=== PATIENT | male | born 1940 | race Native Hawaiian/Other Pacific Islander ===

== ENCOUNTER 2016-11-26 07:04 | Outpatient (CLI) | payer OTHER, MEDICARE ==
[~2016-11-26 07:04] MED LIST: ASPIRIN ADULT L81 MG OR; CEPH500C20 PO; FISH OIL ULT1000 MG OR; GLUCOPHAGE1000 MG PO; LEVAQUIN500 MG OR; LISI5TAB10 PO; MULTI OR; PRILOSEC20 MG OR; SILV1CRE EX; SIMV20TA2 PO; TRILIPIX135 MG OR; UNITH DIRECT50 MCG PO; VITAMIN D1000 UNIT OR
[2016-11-26 08:07] LABS: PLATELET COUNT 306 K/uL (142-355)
[2016-11-26 09:58] LABS: POTASSIUM 4.1 mmol/L (3.6-5.2)
== END 2016-11-26 08:04 | disposition home or self-care (01) ==
LOC: LABW 07:04
PROVIDERS: Internal Medicine
DX: R63.0 Anorexia (principal); E11.9 Type 2 diabetes mellitus without complications; E03.8 Other specified hypothyroidism; Z12.5 Encounter for screening for malignant neoplasm of prostate; R97.20 Elevated prostate specific antigen [PSA]
CPT/HCPCS: 36415; 80053; 80061; 81000; 82043; 82570; 83036; 84153; 84439; 84443; 85027

== ENCOUNTER 2017-01-24 06:59 | Outpatient (CLI) | payer OTHER, MEDICARE | END 2017-01-24 08:05 | disposition home or self-care (01) | LOC: LABW 06:59 | DX: R97.20 Elevated prostate specific antigen [PSA] (principal) | CPT/HCPCS: 36415; 84154 ==

== ENCOUNTER 2017-05-22 06:49 | Outpatient (CLI) | payer OTHER, MEDICARE ==
[2017-05-22 13:48] LABS: PLATELET COUNT 284 K/uL (142-355)
== END 2017-05-22 07:50 | disposition home or self-care (01) ==
LOC: LABW 06:49
PROVIDERS: Internal Medicine Cardiovascular Disease
DX: E78.4 Other hyperlipidemia (principal); I25.119 Atherosclerotic heart disease of native coronary artery with unspecified angina pectoris; I10 Essential (primary) hypertension; E11.9 Type 2 diabetes mellitus without complications; N39.0 Urinary tract infection, site not specified; R97.20 Elevated prostate specific antigen [PSA]
CPT/HCPCS: 36415; 80061; 80076; 81000; 83036; 84153; 84443; 85027

== ENCOUNTER 2017-06-26 10:38 | Inpatient (IN) | payer OTHER, MEDICARE ==
[~2017-06-26] VITALS: Ht 185.4 cm; Wt 108.1 kg
[2017-06-26] VITALS (31 sets, daily range): BP systolic 81–146; BP diastolic 42–86; TEMP 98–98.5; Ht 185.4 cm; Wt 108.1 kg
[2017-06-26] MEDS ORDERED: TRICOR145 M1 PO (11:05)
[2017-06-26 11:38] LABS: PLATELET COUNT 215 K/uL (142-355)
[2017-06-26 11:47] LABS: POTASSIUM 3.7 mmol/L (3.6-5.2); SODIUM 130 mmol/L (136-145)
--- NOTE | 2017-06-26 17:30 | NUR ---
77 YEAR OLD MALE ADMITTED TO ICU BED 131 3. PT ALERT ORIENTED TO ROOM, PLACED ON MONITOR. SR HR 65, B/P 124/86. PT RECIEVING NS AT 175 AND LEVOPHED DRIP AT 4 MCG FROM ER. BEGAN ADMISSION ASSESSEMENT. DENIES PAIN. ON PHONE WITH . PT VOIDED 200 ML SLIGHT BLOOD TINGED STATED THAT IT WAS MUCH BETTER HAD PROSTATE BIOPSY ON 06/24/17 IN [place]. PT ORIENTED TO ROOM. SERVED DINNER TRAY CLEAR LIQUIDS.
--- NOTE | 2017-06-26 19:00 | NUR ---
LEVOPHED DRIP TURNED TO 2 MCG. B/P 112/62 B/P STAYING UP, IV FLUIDS CONTINUE AT 175 WILL MONITOR . REPORT TO HOLLEY ARNOLD RESTING IN BED STATES FEELING BETTER. DAUGHTER VISITED. WILL DRAW SECOND SET CARDIAC ENZYMES
--- NOTE | 2017-06-26 19:45 | NUR ---
RECEIVED PATIENT SITTING UP IN BED TALKING TO HIS DAUGHTER. PATIENT IS A&OX4. NO ACUTE PAIN VOICED AT THIS TIME. SHIFT ASSESSMENT COMPLETED. PATIENT IS ON 02 AT 2L VIA NC WITH O2 SATS 94%. IV 20G TO THE RIGHT WRIST INFUSING NS AT 175/ML HR AND LEVOPHED AT 2MCG. B/P 146/71, HR-79. PATIENT REPORTS LAST BOWEL MOVEMENT 06/26/17. USING URINAL AT BEDSIDE TO VOID. BALL SHAGGER SOCKS ON. BED LOCKED IN LOW POSITION, SIDERAILS UP X2, CALL VANESSA WITHIN REACH.
--- NOTE | 2017-06-26 21:35 | NUR ---
RT HERE DOING EKG
[2017-06-27] VITALS (29 sets, daily range): BP systolic 84–129; BP diastolic 57–89; TEMP 97.8–102.7
--- NOTE | 2017-06-27 01:21 | NUR ---
ROUNDING ON PATIENT NOTED FACE FLUSHED AND WARM TO TOUCH. PATIENT HAVING CHILLS WELL. ORAL TEMP TAKEN 101.3 FEVER. NEW ORDER GIVEN FOR TYLENOL. WILL REASSESS FOR DECREASE IN TEMP.
--- NOTE | 2017-06-27 02:20 | NUR ---
POST TYLENOL MEDICATION PATIENT ORAL TEMPERATURE TAKEN. ORAL TEMP 102.7. INFORMED DR. ETHAN UPTON ABOUT NEW ASSESSEMENT FINDINGS WELL PATIENT BOTH POSITIVE BLOOD CULTURES,. NEW ORDER FOR MORTIN 600 MG X1 PO AND ZOSYN 3.75 MG EVERY 6HRS. ORDERS CARRIED OUT AT THIS TIME.
--- NOTE | 2017-06-27 04:30 | NUR ---
NOTED B/P READING 84/58, 96/58. LEVOPHED INCREASED TO 3MCG/MIN.
--- NOTE | 2017-06-27 05:56 | NUR ---
PATIENT NOTED DIAPHORETIC. ORAL TEMP TAKEN 98.1. FSBS 119. PATIENT DENIES CHEST PAIN OR PAIN IN GENERAL. NO OTHER COMPLAINS REPORTED BUT HR IS THE MID 50'S.
[2017-06-27 07:55] LABS: PLATELET COUNT 199 K/uL (142-355)
[2017-06-27 07:59] LABS: POTASSIUM 3.6 mmol/L (3.6-5.2)
--- NOTE | 2017-06-27 08:15 | NUR ---
DR. TAN HERE TO SEE PT.
--- NOTE | 2017-06-27 09:49 | NUR ---
JOHNATHAN OZUNA RT AT BEDSIDE FOR DOPPLER.
--- NOTE | 2017-06-27 11:30 | NUR ---
LEVOPHED DRIP DECREASED TO 2MCG/HR. WILL CONTINUE TO MONITOR.
--- NOTE | 2017-06-27 13:00 | NUR ---
LEVOPHED DRIP DECREASED TO 1MCG/ HR WILL CONTINUE TO MONITOR.
--- NOTE | 2017-06-27 14:28 | NUR ---
LEVOPHED DRIP D/C'D. V/S STABLE. WILL CONTINUE TO MONITOR.
--- NOTE | 2017-06-27 14:40 | NUR ---
DR. TAN HERE TO SEE PT.
--- NOTE | 2017-06-27 16:14 | NUR ---
FAMILY AT BEDSIDE.
--- NOTE | 2017-06-27 17:30 | NUR ---
PT UP TO BR AND HAD A BM. PT BATHED OFF IN BR AND CHANGED CLOTHES. CHANGED BED LINENS.
[2017-06-28] VITALS (12 sets, daily range): BP systolic 84–122; BP diastolic 43–74; TEMP 97.6–101.2
--- NOTE | 2017-06-28 01:33 | NUR ---
PT VOIDED 400 CC OF URINE. PT STATES THAT HE IS "FEELING BETTER".
--- NOTE | 2017-06-28 02:24 | NUR ---
CHECKED PATIENTS TEMP 101.2. PT WA GIVEN TYLENOL 500 MG PO FOR TEMP. EMPTIED 400 OF YELLOW URINE.
--- NOTE | 2017-06-28 03:06 | NUR ---
PT AWAKE LOOKING AT HIS CELL PHONE AND READING. PT STATES HE IS FEELING BETTER. COOL WASHCLOTH APPLIED TO PT'S FOREHEAD.
--- NOTE | 2017-06-28 07:45 | NUR ---
PT UOB TO BR.
[2017-06-28 08:08] LABS: PLATELET COUNT 161 K/uL (142-355)
[2017-06-28 08:16] LABS: POTASSIUM 3.5 mmol/L (3.6-5.2)
--- NOTE | 2017-06-28 08:42 | NUR ---
RESTING QUIETLY WAITING FOR BREAKFAST. DENIES PAIN B/P 122/74 HR 50. AM CARE DONE UP TO BR NO BM JUST PASSED GAS.
--- NOTE | 2017-06-28 10:00 | NUR ---
PT RESTING IN BED DR FAJARDO VISITED RECIEVED NEW ORDERS. PT TO GO TO MED SURG FLOOR TODAY.
--- NOTE | 2017-06-28 13:11 | NUR ---
PT UP TO BR, HAD BM, NO COMPLAINTS WALKED BACK TO BED EATING LUNCH NO COMPLAINTS PT TO GO TO MED SURG FLOOR WAITING FOR ORDERS.
--- NOTE | 2017-06-28 14:00 | NUR ---
PT MOVED TO ROOM 1111 VIA W/C ORIENTED TO ROOM. IV FLUIDS CONTINUE. REPORT TO KRISTEN VILLAGOMEZ RN. DISCHARGED FROM ICU.
[2017-06-29] VITALS: BP 141/78; TEMP 100.3
[2017-06-29 04:00] VITALS: BP 115/71; TEMP 98.6
[2017-06-29 04:32] LABS: PLATELET COUNT 168 K/uL (142-355)
[2017-06-29 04:45] LABS: POTASSIUM 3.9 mmol/L (3.6-5.2)
[2017-06-29 08:00] VITALS: BP 127/73; TEMP 97.8
--- NOTE | 2017-06-29 08:40 | NUR ---
PT STATED HE WAS SORE UNDER RIBS AND IN ABD AND HAVING DIARRHEA. INSTRUCTED PT TO LET US KNOW OF NEXT BM SO WE COULD COLLECT FOR LAB. DR. FAJARDO NOTIFIED.
[2017-06-29 12:30] VITALS: BP 101/54; TEMP 98.9
== END 2017-06-29 14:50 | disposition home or self-care (01) | DRG 871 ==
LOC: ED 10:38 → ICU 16:34 → ED 16:34 → MED/SURG 06-28 14:10
PROVIDERS: Internal Medicine; ADMIT Specialist
DX: A41.51 Sepsis due to Escherichia coli [E. coli] (principal); R65.21 Severe sepsis with septic shock; E87.2 Acidosis; E03.8 Other specified hypothyroidism; I12.9 Hypertensive chronic kidney disease with stage 1 through stage 4 chronic kidney disease, or unspecified chronic kidney disease; E11.22 Type 2 diabetes mellitus with diabetic chronic kidney disease; N18.3 Chronic kidney disease, stage 3 (moderate); N40.0 Benign prostatic hyperplasia without lower urinary tract symptoms; K57.90 Diverticulosis of intestine, part unspecified, without perforation or abscess without bleeding; I95.89 Other hypotension
CPT/HCPCS: 36415; 36600; 80048; 80053; 81000; 82550; 82553; 82805; 82948; 82962; 83605; 83735; 83880; 84100; 84484; 85027; 85379; 85651; 87015; 87040; 87045; 87077; 87086; 87088; 87186; 87205; 87328; 87329; 87899; 93005; 94760; 96360; 96361; 96365; 96366; 96372; 96375; 99285; J0295; J1650; J1720; J2405; J2543; J3490

== ENCOUNTER 2017-07-16 08:29 | Inpatient (IN) | payer OTHER, MEDICARE ==
[~2017-07-16] VITALS: Ht 185.4 cm; Wt 104.6 kg
[~2017-07-16 08:29] MED LIST changes: +TRICOR145 M1 PO
[2017-07-16 08:34] VITALS: BP 151/80; TEMP 98.2
[2017-07-16 09:31] LABS: PLATELET COUNT 293 K/uL (142-355)
[2017-07-16 09:35] LABS: POTASSIUM 4.3 mmol/L (3.6-5.2)
[2017-07-16 11:07] VITALS: BP 142/88
[2017-07-16 12:20] VITALS: BP 146/73
[2017-07-16 16:00] VITALS: BP 128/76; TEMP 99.1
[2017-07-16 16:36] LABS: PARTIAL THROMBOPLASTIN TIME 24.2 SECONDS (24.5-33.6)
[2017-07-16 17:53] VITALS: BP 123/74; TEMP 98.5; Ht 185.4 cm; Wt 104.6 kg
[2017-07-16 20:00] VITALS: BP 116/67; TEMP 100.1
[2017-07-17] VITALS: BP 126/78; TEMP 99
[2017-07-17 04:00] VITALS: BP 119/74; TEMP 99.1
[2017-07-17 05:18] LABS: PLATELET COUNT 232 K/uL (142-355)
[2017-07-17 06:04] LABS: POTASSIUM 3.7 mmol/L (3.6-5.2)
[2017-07-17 08:00] VITALS: BP 112/76; TEMP 98.4
[2017-07-17 12:11] VITALS: BP 130/83; TEMP 98
[2017-07-17 15:51] VITALS: BP 125/65; TEMP 98.3
[2017-07-17 20:27] VITALS: BP 136/77; TEMP 97.7
[2017-07-18] VITALS: BP 134/77; TEMP 98.6
[2017-07-18 04:00] VITALS: BP 130/74; TEMP 98.1
[2017-07-18 05:04] LABS: PLATELET COUNT 233 K/uL (142-355)
[2017-07-18 08:00] VITALS: BP 145/81; TEMP 98
[2017-07-18 08:04] LABS: POTASSIUM 3.9 mmol/L (3.6-5.2)
--- NOTE | 2017-07-18 09:45 | NUR ---
PT UP TO SHOWER.
[2017-07-18 12:00] VITALS: BP 133/81; TEMP 98
[2017-07-18 16:00] VITALS: BP 124/76; TEMP 98.3
[2017-07-18 20:00] VITALS: BP 138/76; TEMP 97.4
[2017-07-19] VITALS: BP 126/74; TEMP 98.4
[2017-07-19 04:00] VITALS: BP 124/85; TEMP 99
[2017-07-19 05:56] LABS: PLATELET COUNT 251 K/uL (142-355)
[2017-07-19 06:13] LABS: POTASSIUM 3.8 mmol/L (3.6-5.2); SODIUM 139 mmol/L (136-145)
[2017-07-19 08:15] VITALS: BP 140/87; TEMP 97.7
[2017-07-19 12:15] VITALS: BP 139/89; TEMP 97.7
[2017-07-19 15:57] VITALS: BP 132/76; TEMP 97.7
[2017-07-19 20:03] VITALS: BP 123/69; TEMP 98.5
[2017-07-20] VITALS: BP 129/80; TEMP 98
[2017-07-20 04:00] VITALS: BP 158/85; TEMP 98.5
[2017-07-20 06:02] LABS: POTASSIUM 4.3 mmol/L (3.6-5.2); SODIUM 139 mmol/L (136-145)
[2017-07-20 06:28] LABS: PLATELET COUNT 243 K/uL (142-355)
[2017-07-20 08:00] VITALS: BP 134/77; TEMP 98.4
== END 2017-07-20 10:00 | disposition home or self-care (01) | DRG 690 ==
LOC: ED 08:29 → MED/SURG 12:30
PROVIDERS: Family Medicine; ADMIT Emergency Medicine
DX: N39.0 Urinary tract infection, site not specified (principal); B96.20 Unspecified Escherichia coli [E. coli] as the cause of diseases classified elsewhere; E86.0 Dehydration; J20.9 Acute bronchitis, unspecified; D64.89 Other specified anemias; K21.9 Gastro-esophageal reflux disease without esophagitis; E11.22 Type 2 diabetes mellitus with diabetic chronic kidney disease; I12.9 Hypertensive chronic kidney disease with stage 1 through stage 4 chronic kidney disease, or unspecified chronic kidney disease; N18.3 Chronic kidney disease, stage 3 (moderate)
CPT/HCPCS: 36415; 36600; 80053; 81000; 82550; 82805; 82948; 83605; 84484; 85027; 85610; 85651; 85730; 86140; 86141; 87040; 87070; 87077; 87086; 87088; 87186; 96372; 99283; J0696; J1650; J2185; J3490

== ENCOUNTER 2018-05-30 06:36 | Outpatient (CLI) | payer OTHER, MEDICARE ==
[2018-05-30 07:20] LABS: PLATELET COUNT 243 K/uL (142-355)
[2018-05-30 07:37] LABS: POTASSIUM 4.1 mmol/L (3.6-5.2)
== END 2018-05-30 19:21 | disposition home or self-care (01) ==
LOC: LABW 06:36
PROVIDERS: Internal Medicine
DX: E78.5 Hyperlipidemia, unspecified (principal); R73.9 Hyperglycemia, unspecified
CPT/HCPCS: 36415; 80053; 80061; 81000; 82043; 82570; 83036; 84439; 84443; 85027

== ENCOUNTER 2019-01-26 08:59 | Outpatient (CLI) | payer OTHER, MEDICARE ==
[2019-01-26 09:24] LABS: PLATELET COUNT 248 K/uL (142-355)
[2019-01-26 09:54] LABS: POTASSIUM 4.4 mmol/L (3.6-5.2)
== END 2019-01-26 19:15 | disposition home or self-care (01) ==
LOC: LABW 08:59
PROVIDERS: Internal Medicine
DX: E11.9 Type 2 diabetes mellitus without complications (principal); I10 Essential (primary) hypertension; R35.1 Nocturia; E55.9 Vitamin D deficiency, unspecified
CPT/HCPCS: 36415; 80053; 80061; 82306; 84153; 84439; 84443; 85027

== ENCOUNTER 2019-07-30 07:11 | Outpatient (CLI) | payer OTHER, MEDICARE ==
[2019-07-30 07:47] LABS: PLATELET COUNT 245 K/uL (142-355)
[2019-07-30 08:10] LABS: POTASSIUM 4.3 mmol/L (3.6-5.2)
== END 2019-07-30 19:46 | disposition home or self-care (01) ==
LOC: LABW 07:11
PROVIDERS: Internal Medicine
DX: Z00.00 Encounter for general adult medical examination without abnormal findings (principal); Z12.5 Encounter for screening for malignant neoplasm of prostate; Z79.899 Other long term (current) drug therapy; R97.20 Elevated prostate specific antigen [PSA]
CPT/HCPCS: 36415; 80053; 80061; 81000; 84153; 84439; 84443; 85027

== ENCOUNTER 2019-08-11 08:54 | Outpatient (CLI) | payer OTHER, MEDICARE | END 2019-08-11 19:27 | disposition home or self-care (01) | LOC: US 08:54 | DX: Z13.6 Encounter for screening for cardiovascular disorders (principal); Z12.2 Encounter for screening for malignant neoplasm of respiratory organs | CPT/HCPCS: G0297-TC ==

== ENCOUNTER 2020-06-01 11:52 | Outpatient (CLI) | payer OTHER, MEDICARE ==
[2020-06-01 12:42] LABS: PLATELET COUNT 234 K/uL (142-355)
[2020-06-01 12:55] LABS: POTASSIUM 4.3 mmol/L (3.6-5.2)
== END 2020-06-01 19:30 | disposition home or self-care (01) ==
LOC: LABW 11:52
PROVIDERS: Internal Medicine
DX: E11.9 Type 2 diabetes mellitus without complications (principal)
CPT/HCPCS: 36415; 80053; 80061; 81000; 82043; 82570; 83036; 84439; 84443; 85027

== ENCOUNTER 2020-07-01 08:32 | Outpatient (CLI) | payer OTHER, MEDICARE ==
[2020-07-01 10:06] LABS: PLATELET COUNT 244 K/uL (142-355)
== END 2020-07-01 19:15 | disposition home or self-care (01) ==
LOC: LABW 08:32
PROVIDERS: Internal Medicine
DX: Z51.81 Encounter for therapeutic drug level monitoring (principal)
CPT/HCPCS: 36415; 80076; 85027

== ENCOUNTER 2020-07-28 07:10 | Outpatient (CLI) | payer OTHER, MEDICARE | END 2020-07-28 18:53 | disposition home or self-care (01) | LOC: LABW 07:10 | PROVIDERS: ATTEND Internal Medicine | DX: B35.1 Tinea unguium (principal) | CPT/HCPCS: 36415; 80076 ==

== ENCOUNTER 2020-12-27 07:40 | Outpatient (CLI) | payer OTHER, MEDICARE ==
[2020-12-27 08:27] LABS: PLATELET COUNT 231 K/uL (142-355)
[2020-12-27 08:43] LABS: POTASSIUM 4.2 mmol/L (3.6-5.2)
== END 2020-12-27 19:15 | disposition home or self-care (01) ==
LOC: LABW 07:40
PROVIDERS: ATTEND Internal Medicine
DX: Z00.00 Encounter for general adult medical examination without abnormal findings (principal); E11.9 Type 2 diabetes mellitus without complications; Z12.5 Encounter for screening for malignant neoplasm of prostate; N40.0 Benign prostatic hyperplasia without lower urinary tract symptoms
CPT/HCPCS: 36415; 80053; 80061; 81000; 83036; 84153; 84439; 84443; 84550; 85027

== ENCOUNTER 2021-01-25 08:36 | Outpatient (CLI) | payer OTHER, MEDICARE | END 2021-01-25 22:44 | disposition home or self-care (01) | LOC: CT 08:36 | PROVIDERS: ATTEND Internal Medicine | DX: Z12.2 Encounter for screening for malignant neoplasm of respiratory organs (principal); Z87.891 Personal history of nicotine dependence ==

== ENCOUNTER 2022-05-07 08:27 | Outpatient (CLI) | payer OTHER, MEDICARE ==
[2022-05-07 08:53] LABS: PLATELET COUNT 235 K/uL (142-355)
[2022-05-07 09:08] LABS: POTASSIUM 4.2 mmol/L (3.6-5.2)
== END 2022-05-07 19:26 | disposition home or self-care (01) ==
LOC: LABW 08:27
PROVIDERS: ATTEND Internal Medicine
DX: E11.9 Type 2 diabetes mellitus without complications (principal)
CPT/HCPCS: 36415; 80053; 80061; 81002; 83036; 84439; 84443; 85027

== ENCOUNTER 2022-09-05 09:23 | Outpatient (CLI) | payer OTHER, MEDICARE ==
[2022-09-05 10:22] LABS: PLATELET COUNT 270 K/uL (142-355)
[2022-09-05 10:35] LABS: POTASSIUM 4.1 mmol/L (3.6-5.2)
== END 2022-09-05 18:59 | disposition home or self-care (01) ==
LOC: LABW 09:23
PROVIDERS: ATTEND Internal Medicine
DX: E11.9 Type 2 diabetes mellitus without complications (principal); E79.0 Hyperuricemia without signs of inflammatory arthritis and tophaceous disease
CPT/HCPCS: 80053; 80061; 82043; 85027

== ENCOUNTER 2022-09-18 15:12 | Outpatient (CLI) | payer OTHER, MEDICARE | END 2022-09-18 19:58 | disposition home or self-care (01) | LOC: LABW 15:12 | PROVIDERS: ATTEND Internal Medicine | DX: E03.8 Other specified hypothyroidism (principal); E79.0 Hyperuricemia without signs of inflammatory arthritis and tophaceous disease; E11.9 Type 2 diabetes mellitus without complications | CPT/HCPCS: 83036; 84439; 84443; 84550 ==